=== PATIENT | female | born 1955 | race Caucasian/White ===

== ENCOUNTER 2019-03-24 06:31 | Day surgery (SDC) | payer OTHER ==
[2019-03-24] MEDS ORDERED: LIDOCAINE 2% (SDV) 5 ML INJ (08:32)
[2019-03-24] MEDS ORDERED: PROPOFOL 60 ML (08:32)
== END 2019-03-24 11:14 | disposition home or self-care (01) ==
LOC: GIL 06:31
DX: Z12.11 Encounter for screening for malignant neoplasm of colon (principal); K64.9 Unspecified hemorrhoids; K29.50 Unspecified chronic gastritis without bleeding; I10 Essential (primary) hypertension
CPT/HCPCS: 43239; 88305; 88312